=== PATIENT | male | born 1985 | race Hispanic/Latino ===

== ENCOUNTER 2018-01-07 16:58 | Emergency (ER) | payer SELFPAY ==
--- NOTE | 2018-01-07 17:16 | ED PDOC ---
HPI: Psych/Substance Abuse Time Seen by Provider: 01/07/18 17:05 Chief Complaint (Nursing): Alcohol Ingestion Chief Complaint (Provider): ETOH History Per: Patient, EMS Additional Complaint(s): 32 year old male presents acutely intoxicated. Police were called after patient was found asleep in the vestibule of an apartment building. He was found with his friend who was also intoxicated and brought to ED as well. Patient admits to drinking today and denies any drug use. He offers no acute complaints. PMD: none Past Medical History Reviewed: Historical Data, Nursing Documentation, Vital Signs Vital Signs: Last Vital Signs Temp 97.8 F 01/07/18 17:11 Pulse 109 H 01/07/18 17:11 Resp 20 01/07/18 17:11 BP 138/90 01/07/18 17:11 Pulse Ox 98 01/07/18 17:11 - Medical History PMH: No Chronic Diseases - Family History Family History: States: No Known Family Hx - Living Arrangements Living Arrangements: With Friends/Others - Social History Current smoker - smoking cessation education provided: No Alcohol: Social Drugs: Denies - Home Medications Home Medications: Ambulatory Orders Medication Instructions Recorded Esomeprazole Magnesium [Nexium] 40 mg PO DAILY #28 ecc 11/25/14 Ondansetron ODT [Zofran ODT] 4 mg PO Q6H PRN #16 odt 11/25/14 - Allergies Allergies/Adverse Reactions: Allergies Allergy/AdvReac Type Severity Reaction Status Date / Time aspirin Allergy ANAPHYLAXIS Verified 01/07/18 17:10 Review of Systems ROS Statement: Except As Marked, All Systems Reviewed And Found Negative Psych: Positive for: Other (etoh) Physical Exam - Reviewed Nursing Documentation Reviewed: Yes Vital Signs Reviewed: Yes - Physical Exam Appears: Positive for: Well, Non-toxic, No Acute Distress Skin: Positive for: Normal Color. Negative for: Rash Eye Exam: Positive for: Normal appearance Cardiovascular/Chest: Positive for: Regular Rate, Rhythm Respiratory: Positive for: Normal Breath Sounds Neurologic/Psych: Positive for: Alert, Oriented - ECG O2 Sat by Pulse Oximetry: 98 Pulse Ox Interpretation: Normal Medical Decision Making Medical Decision Makin32 year old intoxicated male Patient has unsteady gait upon arrival. He will not stay in ED room. Patient entered another room and fell, witnessed by signwriter. He sustained no head injury or LOC and was ambulatory after the fall. Security was called to bedside and patient was able to be redirected back to his room. Patient was placed under 1:1 bedside observation. Patient was observed for 1.5 hours in ED. His conditioned remained stable throughout stay. 6:30 pm: patient is alert, has steady gait, stable for discharge. Disposition - Clinical Impression Clinical Impression: Alcohol intoxication - Patient ED Disposition Is Patient to be Admitted: No Counseled Patient/Family Regarding: Need For Followup - Disposition Referrals: [facility] [place] [Outside] Disposition: Routine/Home Disposition Time: 18:20 Condition: STABLE Instructions: Alcohol Use - When Is Drinking a Problem? Forms: [employer] (Faroese)
[2018-01-07 18:41] VITALS: BP 133/79; PULSE 89; RESP 16; TEMP 98.7
[2018-01-07 19:29] VITALS: O2SAT 98
== END 2018-01-07 18:41 | disposition home or self-care (01) ==
LOC: H.ER 16:58
DX: F10.129 Alcohol abuse with intoxication, unspecified (principal)